=== PATIENT | female | born 1950 | race Caucasian/White ===

== ENCOUNTER → 2024-05-20 11:06 | Outpatient (REF) | payer MEDICARE, OTHER, SELFPAY | LOC: HWRAD 11:06 | PROVIDERS: ATTENDING PHYSICIAN Urology; FAMILY PHYSICIAN Family Medicine | DX: N20.0 Calculus of kidney (principal) | CPT/HCPCS: 76775 ==

== ENCOUNTER 2024-06-10 07:24 | Outpatient (RCR) | payer SELFPAY | END 2024-06-11 07:39 | disposition home or self-care (01) | LOC: ROT 07:24 | PROVIDERS: ATTENDING PHYSICIAN Family Medicine | DX: Z02.4 Encounter for examination for driving license (principal) ==

== ENCOUNTER → 2024-06-17 13:26 | Day surgery (SDC) | payer MEDICARE, OTHER, SELFPAY | LOC: SDSPAT 13:26 | PROVIDERS: ATTENDING PHYSICIAN Urology; FAMILY PHYSICIAN Family Medicine; REFERRING PHYSICIAN Internal Medicine Cardiovascular Disease | DX: Z01.810 Encounter for preprocedural cardiovascular examination (principal); I48.91 Unspecified atrial fibrillation; I45.10 Unspecified right bundle-branch block | CPT/HCPCS: 93005; 36415 ==

== ENCOUNTER 2024-06-21 06:18 | Day surgery (SDC) | payer MEDICARE, OTHER, SELFPAY ==
[2024-06-17 14:03] VITALS: BMI 33.1
--- NOTE | 2024-06-18 16:25 | PTCARENOTE ---
Abn ECG, Dr. Valdez notified, no requests made.
[2024-06-21] VITALS (8 sets, daily range): BP systolic 112–128; BP diastolic 68–96; BMI 33.1
[2024-06-21] MEDS: Pyridium 200 MG PO (15:41)
--- NOTE | 2024-06-21 15:53 | SUR.PHASEI ---
patient if very forgetful, repetative questions, pyridium 200mg given PO. repeatly explain procedure and plan of care. vss, dependent on SO for support and reinforcement
== END 2024-06-21 17:06 | disposition home or self-care (01) ==
LOC: SDS 06:18
PROVIDERS: ATTENDING PHYSICIAN Urology; FAMILY PHYSICIAN Family Medicine
DX: N20.2 Calculus of kidney with calculus of ureter (principal)
CPT/HCPCS: 52356; 74420; 76000; 82365; A4300; C1758; C1769; C1894; C2617

== ENCOUNTER 2025-02-04 19:55 | Inpatient (IN) | payer MEDICARE, OTHER, SELFPAY ==
[2025-02-04] VITALS (9 sets, daily range): BP systolic 91–178; BP diastolic 53–105; BMI 32.2
[2025-02-04 14:51] LABS: Hematocrit 47.9 % (37.0-47.0); Hemoglobin 16.4 g/dL (12.0-16.0); Mean Corp Hgb Conc. 34.2 g/dL (33.0-37.0); Mean Corpuscular Volume 89.9 fL (81.0-99.0); Nucleated Red Blood Cells % 0 %; Platelet Count 189 10^3/uL (130-400); Red Cell Dist. Width 13.2 % (11.5-14.5)
[2025-02-04 14:58] LABS: ALT (SGPT) 20 U/L (0-35); AST (SGOT) 25 U/L (14-36); Albumin 4.7 g/dl (3.5-5.0); Alkaline Phosphatase 106 U/L (38-126); Blood Urea Nitrogen 26 mg/dl (7-17); Calcium 9.8 mg/dl (8.4-10.2); Carbon Dioxide 25 mmol/L (22-30); Chloride 105 mmol/L (98-107); Glucose 154 mg/dl (70-99); Potassium 3.9 mmol/L (3.5-5.1); Sodium 139 mmol/L (135-145); Total Protein 7.5 g/dl (6.3-8.2); eGFR > 60.00
[2025-02-04 15:15] LABS: Urine Character Cloudy (Clear)
[2025-02-04 15:22] LABS: Urine Red Blood Cell 26-30 /HPF (0-2); Urine Squamous Cell 0-2 /LPF (Few); Urine White Cell >100 /HPF (0-5)
--- NOTE | 2025-02-04 15:26 | ED.GENMED ---
History of Present Illness
<Mounika Curtis PA-C - Last Filed: 02/04/25 18:21>
General
Chief Complaint: Weakness
Source: patient
Exam Limitations: none
Time Seen by Provider: 02/04/25 14:38
Nursing documentation reviewed up to this point in time: agreed with
History of Present Illness
History of Present Illness:
Patient is a 74-year-old female with history dementia, atrial fibrillation on Eliquis, hypertension, hyperlipidemia who presents to the emergency department via EMS for evaluation of generalized weakness. Patient unable to contribute to history
given history of dementia. She denies any current complaints getting headache, neck pain, chest pain, shortness of breath, or abdominal pain.
Apparently she is incontinent at baseline.
Of note�patient's arrived later in ED course stating that symptoms seem to come on relatively acutely today. She states patient was at her baseline yesterday however today was so weak that she cannot get out of bed. She was having trouble
ambulating and patient's feels that she may have been more confused than her baseline. No history of trauma. She has had no known fever.
Past History
<Mounika Curtis PA-C - Last Filed: 02/04/25 18:21>
Past History
ED Past Medical History: Arrthythmia, HTN and Hypercholesterolemia
Social History
Tobacco: Non-smoker
Review of Systems
<Mounika Curtis PA-C - Last Filed: 02/04/25 18:21>
Review of Systems
Allergies reviewed?: Yes
All Other Systems: ROS reviewed and negative except as documented in HPI and ROS
Phy Exam
<Mounika Curtis PA-C - Last Filed: 02/04/25 18:21>
Physical Exam
Physical Exam:
Vitals: Hypertensive, tachycardic on arrival. Febrile to 100.5F
General: Patient is no apparent distress
Skin: Warm and dry, no rashes or lesions
Head: Normocephalic, atraumatic
Eyes: Sclera nonicteric.
Throat: Protecting airway
Neck: Normal ROM, no cervical spine tenderness, no meningismus
Cardiac: Tachycardic, irregularly irregular rhythm, no murmurs.
Pulm: Normal respiratory effort, no wheezes, rales, rhonchi heard on exam
.
Abdomen: Abdomen soft. Diffuse tenderness without rebound tenderness or guarding. No CVA tenderness.
Extremities: No evidence of cyanosis or edema. Moving all extremities.
Neuro: AAOx 1 to person, not place or time (which is baseline). No focal deficits noted
Psychiatric: Normal affect.
Sepsis
<Mounika Curtis PA-C - Last Filed: 02/04/25 18:21>
Sepsis Screening
Sepsis Assessment: Severe Sepsis
Sepsis Screening: Lactate >2mmol/L
Sepsis Screen
Sepsis Screen: Severe Sepsis
Date: 02/04/25
Time: 18:16
<Griffin Badillo MD - Last Filed: 02/04/25 21:58>
Sepsis Screen
Sepsis Screen: Severe Sepsis
Date: 02/04/25
Time: 21:57
Course
<Mounika Curtis PA-C - Last Filed: 02/04/25 18:21>
Orders/Labs/Results
Orders:
Orders
02/04/25 14:31
Cardiac Monitoring- Treatment ONCE
IV Insert/Care/Rem.- Treatment PRN
02/04/25 14:37
Complete Blood Count/With Diff Urgent
Comprehensive Metabolic Panel Urgent
02/04/25 14:45
Electrocardiogram (*1) Urgent
Reason for Study: Fatigue / Weakness
EKG- Treatment ONCE
Straight cath- Treatment ONCE
pacemaker [Interrogate Pacemaker- Treatment] ONCE
0.9% Sodium Chloride 500 ml [Nss] 500 ml IV BOLUS
02/04/25 14:46
CT Abd/pelvis W Iv Cont Urgent
Comment:
Reason For Exam: abdominal pain, weakness
02/04/25 15:07
Urinalysis Reflex To Culture Urgent
Date Specimen was Collected: 02/04/25
Time Specimen was Collected: 14:59
Urine Microscopic Reflex Cult Urgent
Urine Culture Urgent
KATHERINE Source: U
Specimen Description:
Obtained by: Random
Date Specimen was Collected: 02/04/25
Time Specimen was Collected: 14:59
02/04/25 15:09
0.9% Sodium Chloride 1000 ml [Nss] 1,000 ml IV BOLUS
02/04/25 15:10
Acetaminophen [Tylenol] 650 mg PO NOW STA
CR Chest - 2 Views Urgent
Comment:
Reason For Exam: weakness, febrile
02/04/25 15:18
COVID-19 Antigen Urgent
Source: Nasal Swab
Lactic Acid Q4H
Comment: CANCEL 2nd LACTIC ACID IF 1st LACTIC ACID IS LESS THAN 2
Blood Culture Q30M
KATHERINE Source: Blood/Venous
Specimen Description:
02/04/25 15:57
Cefepime HCl [Maxipime] 2,000 mg IV NOW STA
02/04/25 16:47
0.9% Sodium Chloride 1000 ml [Nss] 1,000 ml IV BOLUS
02/04/25 16:55
Blood Culture Q30M
KATHERINE Source: Blood/Venous
Specimen Description:
02/04/25 17:13
CT Head W/o Iv Contrast Urgent
Comment:
Reason For Exam: AMS on eliquis
02/04/25 19:26
Admit/Transfer Patient As Directed
Co-Sign Provider:
Level of Care: Inpatient admission
Assign to:: Telemetry
Physician / Group: Cortez Coulter
Diagnosis: sepsis, UTI
Reason for Telemetry: Arrhythmia
Date to Stop Telemetry: 02/07/25
Time to Stop Telemetry: 11:00
Reason for Hospitalization: Sepsis, UTI
Expected length of stay greater than two midnights?: Yes
ELOS- Estimated Length of Stay in days: 3
I certify the patient meets the requirements for IP care: Yes
PRN Pain Medication Management As Directed
May give lesser potent ordered pain med per pt: Yes
preference::
Protocol:: Medication orders for pain may be administered in a
manner that supports deferring to patient preference
when the pt is:
- Requesting an ordered lesser potent pain medication.
Least to most potent pain medications are defined
as: acetaminophen < NSAID < tramadol < opioids
(morphine, oxycodone, hydromorphone).
- Requesting a lesser dose of the same medication IF
ORDERED.
- Requesting a less intrusive route of administration
if both routes are prescribed by the provider (PO <
IV).
02/04/25 19:28
Code Status As Directed
Resuscitation Status: Do not resuscitate
Reached after discussion with pt or family/Healthcare POA: Yes
Decision communicated with: patients
DNR Bracelet Application ONCE
02/04/25 20:03
Lactic Acid Q4H
Comment: CANCEL 2nd LACTIC ACID IF 1st LACTIC ACID IS LESS THAN 2
02/07/25 11:00
DC Protocol for Telemetry ONCE
Abnormal Lab Results
02/04/25 02/04/25 02/04/25
14:37 15:07 15:18
WBC 15.0 H 10^3/uL
(4.8-10.8)
Hgb 16.4 H g/dL
(12.0-16.0)
Hct 47.9 H %
(37.0-47.0)
MPV 10.9 H fL
(7.4-10.4)
Abs Immat Gran (auto) 0.1 H 10^3/uL
(0-0.05)
Absolute Neuts (auto) 13.3 H 10^3/uL
(1.4-6.5)
Absolute Lymphs (auto) 0.7 L 10^3/uL
(1.2-3.4)
Absolute Monos (auto) 0.9 H 10^3/uL
(0.1-0.6)
Neutrophils % 88.6 H %
(42.2-75.2)
Lymphocytes % 4.9 L %
(20.5-51.1)
BUN 26 H mg/dl
(7-17)
Glucose 154 H mg/dl
(70-99)
Lactic Acid 2.2 H mmol/L
(0.7-2.0)
Total Bilirubin 1.6 H mg/dl
(0.2-1.3)
Ur Occult Blood Reflex 4+ A
(Negative)
Leukocyte Esterase Rfl 3+ A
(Negative)
Urine RBC 26-30 A /HPF
(0-2)
Urine WBC (Reflex) >100 A /HPF
(0-5)
Urine Bacteria (Reflex) Many A
(Negative)
Urine Albumin (Reflex) 2+ A
(Neg - Trace)
02/04/25 14:37
02/04/25 14:37
Vital Signs
Initial and Last Documented VS:
Initial Vital Signs
BP
178/105
02/04/25 14:21
Last Documented Vital Signs
Temp Pulse Resp BP Pulse Ox
100.5 F H 101 19 129/68 97
02/04/25 15:04 02/04/25 20:45 02/04/25 20:45 02/04/25 18:00 02/04/25 18:00
<Griffin Badillo MD - Last Filed: 02/04/25 21:58>
Orders/Labs/Results
Orders:
Orders
02/04/25 14:31
Cardiac Monitoring- Treatment ONCE
IV Insert/Care/Rem.- Treatment PRN
02/04/25 14:37
Complete Blood Count/With Diff Urgent
Comprehensive Metabolic Panel Urgent
02/04/25 14:45
Electrocardiogram (*1) Urgent
Reason for Study: Fatigue / Weakness
EKG- Treatment ONCE
Straight cath- Treatment ONCE
pacemaker [Interrogate Pacemaker- Treatment] ONCE
0.9% Sodium Chloride 500 ml [Nss] 500 ml IV BOLUS
02/04/25 14:46
CT Abd/pelvis W Iv Cont Urgent
Comment:
Reason For Exam: abdominal pain, weakness
02/04/25 15:07
Urinalysis Reflex To Culture Urgent
Date Specimen was Collected: 02/04/25
Time Specimen was Collected: 14:59
Urine Microscopic Reflex Cult Urgent
Urine Culture Urgent
KATHERINE Source: U
Specimen Description:
Obtained by: Random
Date Specimen was Collected: 02/04/25
Time Specimen was Collected: 14:59
02/04/25 15:09
0.9% Sodium Chloride 1000 ml [Nss] 1,000 ml IV BOLUS
02/04/25 15:10
Acetaminophen [Tylenol] 650 mg PO NOW STA
CR Chest - 2 Views Urgent
Comment:
Reason For Exam: weakness, febrile
02/04/25 15:18
COVID-19 Antigen Urgent
Source: Nasal Swab
Lactic Acid Q4H
Comment: CANCEL 2nd LACTIC ACID IF 1st LACTIC ACID IS LESS THAN 2
Blood Culture Q30M
KATHERINE Source: Blood/Venous
Specimen Description:
02/04/25 15:57
Cefepime HCl [Maxipime] 2,000 mg IV NOW STA
02/04/25 16:47
0.9% Sodium Chloride 1000 ml [Nss] 1,000 ml IV BOLUS
02/04/25 16:55
Blood Culture Q30M
KATHERINE Source: Blood/Venous
Specimen Description:
02/04/25 17:13
CT Head W/o Iv Contrast Urgent
Comment:
Reason For Exam: AMS on eliquis
02/04/25 19:26
Admit/Transfer Patient As Directed
Co-Sign Provider:
Level of Care: Inpatient admission
Assign to:: Telemetry
Physician / Group: Cortez Coulter
Diagnosis: sepsis, UTI
Reason for Telemetry: Arrhythmia
Date to Stop Telemetry: 02/07/25
Time to Stop Telemetry: 11:00
Reason for Hospitalization: Sepsis, UTI
Expected length of stay greater than two midnights?: Yes
ELOS- Estimated Length of Stay in days: 3
I certify the patient meets the requirements for IP care: Yes
PRN Pain Medication Management As Directed
May give lesser potent ordered pain med per pt: Yes
preference::
Protocol:: Medication orders for pain may be administered in a
manner that supports deferring to patient preference
when the pt is:
- Requesting an ordered lesser potent pain medication.
Least to most potent pain medications are defined
as: acetaminophen < NSAID < tramadol < opioids
(morphine, oxycodone, hydromorphone).
- Requesting a lesser dose of the same medication IF
ORDERED.
- Requesting a less intrusive route of administration
if both routes are prescribed by the provider (PO <
IV).
02/04/25 19:28
Code Status As Directed
Resuscitation Status: Do not resuscitate
Reached after discussion with pt or family/Healthcare POA: Yes
Decision communicated with: patients
DNR Bracelet Application ONCE
02/04/25 20:03
Lactic Acid Q4H
Comment: CANCEL 2nd LACTIC ACID IF 1st LACTIC ACID IS LESS THAN 2
02/07/25 11:00
DC Protocol for Telemetry ONCE
Abnormal Lab Results
02/04/25 02/04/25 02/04/25
14:37 15:07 15:18
WBC 15.0 H 10^3/uL
(4.8-10.8)
Hgb 16.4 H g/dL
(12.0-16.0)
Hct 47.9 H %
(37.0-47.0)
MPV 10.9 H fL
(7.4-10.4)
Abs Immat Gran (auto) 0.1 H 10^3/uL
(0-0.05)
Absolute Neuts (auto) 13.3 H 10^3/uL
(1.4-6.5)
Absolute Lymphs (auto) 0.7 L 10^3/uL
(1.2-3.4)
Absolute Monos (auto) 0.9 H 10^3/uL
(0.1-0.6)
Neutrophils % 88.6 H %
(42.2-75.2)
Lymphocytes % 4.9 L %
(20.5-51.1)
BUN 26 H mg/dl
(7-17)
Glucose 154 H mg/dl
(70-99)
Lactic Acid 2.2 H mmol/L
(0.7-2.0)
Total Bilirubin 1.6 H mg/dl
(0.2-1.3)
Ur Occult Blood Reflex 4+ A
(Negative)
Leukocyte Esterase Rfl 3+ A
(Negative)
Urine RBC 26-30 A /HPF
(0-2)
Urine WBC (Reflex) >100 A /HPF
(0-5)
Urine Bacteria (Reflex) Many A
(Negative)
Urine Albumin (Reflex) 2+ A
(Neg - Trace)
02/04/25 14:37
02/04/25 14:37
Vital Signs
Initial and Last Documented VS:
Initial Vital Signs
BP
178/105
02/04/25 14:21
Last Documented Vital Signs
Temp Pulse Resp BP Pulse Ox
100.5 F H 101 19 129/68 97
02/04/25 15:04 02/04/25 20:45 02/04/25 20:45 02/04/25 18:00 02/04/25 18:00
<Mounika Curtis PA-C - Last Filed: 02/04/25 18:21>
MDM/Problems Addressed
Differential Diagnosis Includes:
Not limited to: Sepsis, viral illness, UTI, pyelonephritis, nephrolithiasis, intra-abdominal infection, etc.
MDM/Problems Addressed:
74-year-old female with history as documented presenting with generalized weakness x 1 day, found to be febrile on arrival. History extremely limited secondary to dementia. No history of recent trauma. Patient hypertensive and tachycardic on
arrival. Physical exam as above. Given fever and weakness�concern for sepsis or infectious process. ED plan labs, lactic blood cultures, UA, CT abdomen/pelvis, chest x-ray. Will give IV fluids, Tylenol and closely monitor
Update: Labs reviewed significant for leukocytosis of 15. Chemistry reveals mild elevation in bilirubin as well as elevated lactic acid to 2.2. Urine appears infected. Patient meets sepsis criteria given tachycardia, fever, leukocytosis and
findings of UTI. Will start IV cefepime pending CT scan. At this point�lower suspicion for pulmonary etiology. Patient will require admission for IV antibiotics, fluid resuscitation and continued management.
Update 5:15 PM:: CT scan with findings consistent of cystitis. Into reassess patient at bedside whose is now present. does report that she feels there may have been a mild mental status change as well as generalized weakness. Given
patient is anticoagulated on Eliquis will check CT head. However�patient did receive IV contrast for abdominal CT�plan will be to hold CT for 6 hours. Overall low suspicion for acute intracranial process and suspect possible mental status change
secondary to UTI.
[facility]fluid [facility] given sepsis suspected secondary to UTI. IV cefepime and fluids given in ED. Patient excepted to hospitalist service in stable condition.
Chronic conditions affecting care:
Atrial fibrillation on Eliquis, hypertension, history of kidney stones
Acute Exacerbation and/or Progression of Chronic Illness:
N/A
<Mounika Curtis PA-C - Last Filed: 02/04/25 18:21>
*Radiology
Radiology exam reviewed: preliminary read by ED provider and radiology read reviewed
*Pulse Oximetry
SaO2: 97
Oxygen Mode of Delivery: Room air
Patient hypoxic: no
*EKG
Interpreted by ED Provider?: Yes
EKG Intrepretation Date: 02/04/25
Interpretation: abnormal
Comparison EKG: changes noted
Heart Rate: 87
Rate: normal
Rhythm: a-fib
Interval: normal QT interval
QRS Pattern: right bundle branch block
Ischemia: non-specific ST changes
*T[employer] Professional Interpretation
Rate: tachycardiac
Interpretation: abnormal
Heart Rate: 110
Rhythm: a-fib
*Critical Care Note
Total Time (30-74mins, 75-104mins- exclusive of procedures): Not Applicable
<Mounika Curtis PA-C - Last Filed: 02/04/25 18:21>
Patient Management
Discussion with other providers: Hospitalist
Escalation/DeEscalation of care consider admission/obs:
Admit for IV antibiotics, fluid management
ED Attending Note
<Mounika Curtis PA-C - Last Filed: 02/04/25 18:21>
-
Portions of this chart may have been created with voice recognition software.� Occasional wrong word or��sound alike� substitutions may have occurred due to the inherent limitations of voice recognition software.
<Griffin Badillo MD - Last Filed: 02/04/25 21:58>
ED Attending Note
Patient seen and examined by attending physician: Yes
I performed the substantive portion of visit, reviewed & personally made and approve the management plan that is documented in note by myself or NEAL.: Yes
ED Attending Note:
Patient with change in mental status weakness progressive over 24 hours. History of some dementia. Patient does not add history. History from .
On exam patient is nontoxic in no distress. Low-grade fever. Neck supple. No rash. No respiratory distress. Atrial fibrillation with borderline tachycardia. Patient alert to name and somewhat to birthdate.
Labs show leukocytosis positive urine. Metabolic encephalopathy secondary to UTI. Highly doubt intracranial bleed. For completeness we will do a delayed head CT.
Discharge Plan
Departure
Patient Disposition: Admit
Date of Disposition: 02/04/25
Time of Disposition: 18:09
Presentation/result/management discussed w/ accepting MD/DO: Hospitalist
Discharge Problem:
Sepsis, UTI (urinary tract infection)
Interventions
Interventions:
*Risk Screen - Suicide Last Done: 02/04/25 14:29
*Neglect/Abuse Screening Last Done: 02/04/25 14:24
ED- Cardiac Assessment Last Done: 02/04/25 15:41
ED- Neurological Assessment Last Done: 02/04/25 15:41
ED- Pulmonary Assessment Last Done: 02/04/25 15:41
[2025-02-04] MEDS: NSS 1000 IV ×2 (15:27→18:43)
[2025-02-04] MEDS: TYLENOL 650 MG PO (15:30)
[2025-02-04 16:00] LABS: COVID-19 Antigen Negative (Negative)
[2025-02-04] MEDS: MAXIPIME 2000 MG IV (17:18)
--- NOTE | 2025-02-04 18:14 | EDRN ---
Dr. Badillo in room w/ pt. Attempted to get another IV access to speed up boluses though unable to get a second IV access. Will TT VAT team
--- NOTE | 2025-02-04 18:35 | EDRN ---
VAT RN in room w/pt attempting a second IV access at this time.
--- NOTE | 2025-02-04 18:50 | HPS.HSE ---
Family Physician
-
Family Physician: INTERVIEWE UNKNOWN - PT NOT
Chief Complaint
-
generalized weakness and confusion
History of Present Illness
Patient is a 74-year-old female with past medical history significant for hypertension, hyperlipidemia, permanent atrial fibrillation, dementia and hypothyroid who presented to [facility] ED for evaluation of increased confusion and increased weakness.
Patient is poor historian, at bedside who assisted in HPI. She reports patient this morning had an acute abrupt change from her baseline with confusion and weakness. She does report that patient elected to sleep downstairs last night verse
going upstairs. This morning patient was unable to get up from chair and had increased confusion from baseline. Denies any known fever, chills, cough, shortness of breath, chest pain, nausea, vomiting, constipation, diarrhea or urinary symptoms.
Medical History
Past Medical History
Past Medical History: Reports Other
Additional Past Medical History:
hypertension
hyperlipidemia
permanent atrial fibrillation
hypothyroid
Past Surgical History: Reports Other
Additional Past Surgical History:
kidney stone surgery
L Knee Torn Meniscus
[place] in L Forearm
Laparoscopic hysterectomy and bso 2006
bladder biopsy 04/2022
cystoscopy, left uretoscopy, laser lithotropsy, stone extraction 06/21/2024
Social History
Tobacco: Non-smoker
Alcohol: None
Drug: None
Personal:
Living: With Family
Family History
Family History: Other (Father: CHF; Mother: Lung Cancer )
Allergies / Home Medications
Allergies reflects when Allergies were last updated in [facility].
Home Medications with original date entered in [facility]
Allergy/Medication List:
Allergies
Allergy/AdvReac Type Severity Reaction Status Date / Time
No Known Allergies Allergy Verified 02/04/25 14:22
Home Medications
apixaban 5 mg tablet (Eliquis) 5 mg PO BID 03/30/22
atorvastatin 80 mg tablet 80 mg PO HS 03/30/22
cholecalciferol (vitamin D3) 25 mcg (1,000 unit) tablet (Vitamin D3) 25 mcg PO DAILY 03/30/22
hydrochlorothiazide 12.5 mg tablet 12.5 mg PO DAILY 03/30/22
levothyroxine 137 mcg tablet 137 mcg PO DAILY 03/30/22
losartan 50 mg tablet 50 mg PO DAILY 03/30/22
metoprolol tartrate 25 mg tablet 25 mg PO BID 03/30/22
potassium citrate 15 mEq (1,620 mg) tablet,extended release 15 meq PO BID 06/18/24
diltiazem HCl 240 mg tablet,extended release 24 hr 240 mg PO DAILY 02/04/25
Review of Systems
-
History Source: Patient
Constitutional: Reports No Symptoms
EENT: Reports No Symptoms
Respiratory: Reports No Symptoms
Cardiac: Reports No Symptoms
Abdomen/GI: Reports No Symptoms
: Reports Incontinence
Musculoskeletal: Reports No Symptoms
Skin: Reports No Symptoms
Neurological: Reports Weakness
Endocrine: Reports No Symptoms
Hematologic/Lymphatic: Reports No Symptoms
Psych: Reports Dementia (increased confusion )
Physical Exam
Vital Signs
Vital Signs
Temp Pulse Resp BP Pulse Ox
100.5 F H 98 19 129/68 97
02/04/25 15:04 02/04/25 18:15 02/04/25 18:15 02/04/25 18:00 02/04/25 18:00
Physical Exam
General: Well Developed, Well Nourished, No Apparent Distress, Comfortable, Conversant and Obese
HEENT: NormoCephalic, Moist mucous membranes and Atraumatic
Respiratory: Clear and Non Labored Respirations
Cardiac: S1/S2 and Irregular Rhythm; No Murmur, Rub or Gallop
Breast: Deferred by me
GI: Soft, Non Tender, Non Distended and Normal Bowel Sounds; No Organomegaly
Rectal: Deferred by Provider
Genito-urinary: Deferred by me
Musculoskeletal: No Clubbing, No Cyanosis and No Edema
Skin: IV/Catheter Site
Neuro: Awake
Psych: Apparent Dementia
Laboratory Results
-
02/04/25 14:37
02/04/25 14:37
Laboratory Results
Lactic Acid 2.2 mmol/L (0.7-2.0) H 02/04/25 15:18
Total Bilirubin 1.6 mg/dl (0.2-1.3) H 02/04/25 14:37
AST 25 U/L (14-36) 02/04/25 14:37
ALT 20 U/L (0-35) 02/04/25 14:37
Alkaline Phosphatase 106 U/L (38-126) 02/04/25 14:37
Data Reviewed
-
CT Scan: Report Reviewed by me (Abd/Pel: Urinary bladder wall thickening and fat stranding suspicious for acute cystitis. Recommend correlation with a urinalysis. Wall thickening of the vagina and a small amount of fluid noted in the vaginal canal,
of uncertain etiology. Possibilities include inflammation, infection, or reactive )
Medical Tests (Nuc Med, Echo, EKG etc): Report Reviewed by me (EKG: ATRIAL FIBRILLATION RIGHT BUNDLE BRANCH BLOCK T WAVE ABNORMALITY, CONSIDER INFEROLATERAL ISCHEMIA)
Lab Data: Labs Reviewed by me (WBC 15.0, Neut 88.6, Lactic 2.2)
Impression/Plan
-
IMPRESSION/PLAN:
#sepsis likely 2/2 UTI
WBC 15.0, Neut 88.6, Lactic 2.2
UA: indicative of UTI
Urine Cx: pending
Blood Cx: pending
Abd/Pel CT: Urinary bladder wall thickening and fat stranding suspicious for acute cystitis. Recommend correlation with a urinalysis.
Wall thickening of the vagina and a small amount of fluid noted in the vaginal canal, of uncertain etiology. Possibilities include inflammation, infection, or reactive changes.
Cholelithiasis.
Right nephrolithiasis.
- Admit to med/surg
- IVF LR 100cc/hr
- IV cefepime
- supportive care
#hypertension
- continue losartan
- hold hydrochlorothiazide
#hyperlipidemia
- continue atorvastatin
#permanent atrial fibrillation
EKG: ATRIAL FIBRILLATION
RIGHT BUNDLE BRANCH BLOCK
T WAVE ABNORMALITY, CONSIDER INFEROLATERAL ISCHEMIA
- continue Eliquis, diltiazem and metoprolol
#hypothyroid
- continue levothyroxine
Code status: DNR
DVT prophylaxis: Eliquis
--- NOTE | 2025-02-04 19:28 | W.PN.UPDATE ---
Update Note
Progress Note Update
I could not get any information from the patient has denebtiua
Information gathered by chart review and speaking with the ER staff.
This note serves as an addendum to the H&P by upscale security officer NEAL Kaylyn Baer
HPI
74F HX dementia, A Fib, HTN, HLD, A Fib, seen at ER
- [facility] for evaluation of generalized weakness.
- unable to contribute due to dementia.
- she is incontinent at baseline.
- awake
Vital Signs
Temp Pulse Resp BP Pulse Ox
100.5 F H 98 19 129/68 97
02/04/25 15:04 02/04/25 18:15 02/04/25 18:15 02/04/25 18:00 02/04/25 18:00
02/04/25
15:04 02/04/25
16:00 02/04/25
16:00
Temp 100.5 F H
Pulse 96
Resp Rate 25
Blood pressure 97/77
SaO2 94
PE
Gen: no apparent distress
HEENT: anicteric
Neck: supple
Lungs: CTA
Cor: tachycardic, irregularly irregula
Abdomen: soft. Diffuse tenderness without rebound tenderness or guarding.
BINDERY LEADPERSON:
MS:
Psych:
02/04/25 02/04/25 02/04/25
14:37 15:07 15:18
WBC 15.0 H
Creatinine 0.9
eGFR > 60.00
Lactic Acid 2.2 H
Total Bilirubin 1.6 H
Urine Clarity Cloudy
Leukocyte Esterase Rfl 3+ A
Urine RBC 26-30 A
Urine WBC (Reflex) >100 A
Urine Bacteria (Reflex) Many A
SARS-CoV-2 Antigen Negative
Pending HCT
03/21/23 TTE
LVEF 50-55
Diastolic function indeterminate.
Aortic sclerosis without stenosis.
Mild-moderate tricuspid regurgitation
Estimated PASP 30-32 mmHg, assuming a right atrial pressure of 3-5 mmHg.
NO PRIOR hospitalist admission:
ASSESSMENT & PLAN
Pending Rx reconciliation
Severe Sepsis ( T 100.5, WCC 15, LA2.2) due to UTI
UTI
- UCX
- 2 BCx
- s/p NS 2 L
- switch to LR IVF @ 100 ?H
- cont. IV CFP
Prox AF
- on chr Eliquis
- diltiazem for rate control
Essential HTN
- Hold HCTZ
- cont. Losartan and hold for SBP
Hypothyroid
- on LT4
HX Dementia
DVT Px: chronic Eliquis
DNR
IP TLM
[2025-02-04] MEDS: NSS 500 IV (21:57)
--- NOTE | 2025-02-04 22:38 | PTCARENOTE ---
Pt transported from ED to 3W via stretcher. Pt pullover from stretcher to bed, AAO to self, very confused and jumpy. Pt vitals stable, pt oriented to room, placed on TELE and bed alarm for safety.
[2025-02-04] MEDS: LR 1000 IV (23:00)
[2025-02-04] MEDS: UROCIT-K 15 MEQ PO (23:00)
[2025-02-04] MEDS: ELIQUIS 5 MG PO (23:00)
[2025-02-04] MEDS: LOPRESSOR 25 MG PO (23:00)
[2025-02-04] MEDS: LIPITOR 80 MG PO (23:00)
[2025-02-04] MEDS: MAXIPIME 1000 MG IV (23:24)
[2025-02-04] MEDS: STERILE WATER FOR INJECTION 10 ML IV (23:25)
[2025-02-05 03:13] VITALS: BP 144/64
[2025-02-05] MEDS: MAXIPIME 1000 MG IV ×3 (05:03→17:49)
[2025-02-05] MEDS: STERILE WATER FOR INJECTION 10 ML IV ×3 (05:04→17:48)
[2025-02-05] MEDS: SYNTHROID 137 MCG PO (05:05)
[2025-02-05 07:15] LABS: Hematocrit 39.8 % (37.0-47.0); Hemoglobin 13.4 g/dL (12.0-16.0); Mean Corp Hgb Conc. 33.7 g/dL (33.0-37.0); Mean Corpuscular Volume 90.9 fL (81.0-99.0); Red Cell Dist. Width 13.4 % (11.5-14.5)
--- NOTE | 2025-02-05 07:19 | W.PN.HOSP.TC ---
Addendum entered and electronically signed by Celso Koo MD 02/05/25 22:21:
Attending Addendum-
I saw and evaluated the patient. I reviewed the resident�s note and agree with findings and plan as documented in the resident�s note. Sub: Patient is a poor historian due to dementia. Seen with present. 'This is not her baseline' Patient has
no complaints but has expressive aphasia. Denies urinary, respiratory or GI sxs. Full 12 point ROS attempted but unreliable due to MS. Exam: Vitals reviewed in chart GEN-NAD heart RRR no MRG lungs clear dec=reased at bases abd soft LE no edema
Neuro expressive aphasia AAO x 1 follows commands
Plan:
# Delirium superimposed on advanced dementia
-CT head 02/[address] evidence for acute intracranial hemorrhage or transcortical infarct.
2. Moderate periventricular white matter leukoaraiosis in the frontal lobes.
3. Mild to moderate diffuse cerebral and cerebellar volume loss.
- likely due to UTI
- CTM closely
- unclear baseline as patient seems to have progressive dementia
#Sepsis 2/2 UTI
Urine Cx: GNB sensi pend
Blood Cx: 1/2 pos for staph aureus possible CONS repeat blood cx
Abd/Pel CT: Urinary bladder wall thickening and fat stranding suspicious for acute cystitis
Wall thickening of the vagina and a small amount of fluid noted in the vaginal canal, of uncertain etiology. Possibilities include inflammation, infection, or reactive changes.
Cholelithiasis.
Right nephrolithiasis.
- leukocytosis resolved
- cont IVF LR
- cont cefepime day #2
- trend CBC and fever curve
#Hypertension
- continue losartan
- hold hydrochlorothiazide
#Hyperlipidemia
- continue atorvastatin
#Permanent atrial fibrillation
- has PPM
- monitor on tele
- continue Eliquis, diltiazem and metoprolol
#Hypothyroid
- continue levothyroxine
Code status: DNR
DVT prophylaxis: Eliquis
ACP
Patient consented to discuss, was with , time spent explanation of advance directives, changes in health status, patient�s health care wishes if the patient becomes unable to make health decisions, goals of care, code status, and prognosis- 16
minutes
Time spent coordinating care, review of plan of care with resident, personally reviewed previous records in EMR, med rec, labs, radiology, d/w nursing, family total time documented is exclusive of any additional time listed that was spent in advance
care planning discussion -�51 minutes
Original Note:
Today's Communication/Plan
-
C/w IVF
C/w IV abx
Await cultures
Assessment / Plan
Assessment / Plan
74 yo F PMHx hypertension, hyperlipidemia, permanent atrial fibrillation, dementia and hypothyroid who presented to [facility] ED for evaluation of increased confusion and increased weakness found to have leukocytosis, lactic acidosis and UA suggestive of
UTI, admitted for presumed Sepsis 2* UTI.
#Sepsis secondary to UTI
- On admission -- Leukocytosis >14, Lactic Acidosis, altered mental status, febrile 100.5F, normotensive
- not in shock or requiring pressors
- Urine Cx pending
- Blood Cx pending
- S/p 1L IVF, c/w 100cc/hr LR
- Leukocytosis resolved
- C/w IV Cefepime pending cx results w/ sens
#AMS vs baseline dementia
- baseline unclear, oriented only to person today
- no acute complaints
- will reach out to family to confirm baseline mentation
#Permanent Afib
- L sided cardiac pacemaker
- on Tele monitoring
- ECG showing Afib w/ normal ventricular rate 87 and RBBB (present on ECG from 2023)
- V-paced rate controlled Afib on monitor
- c/w Eliquis, diltiazem, metoprolol with holding parameters for Bradycardia
#Essential Hypertension
- pressures labile, intermittent hypotension
- c/t monitor vitals
- c/w home losartan with holding parameters for SBP <110
#Hyperlipidemia
- c/w statin
#Hypothyroidism
- c/w home dose levothyroxine
DVT PPx: on Eliquis as above
Code Status: DNR
Anticipated Discharge: 24 - 48 hours
Subjective/Interval History
-
Date of Service: February 05, 2025
No acute overnight events. Able to take her medications. No acute complaints at this time, however she is minimally oriented.
Objective Data
-
Labs:
Laboratory Results
02/05/25
06:23
WBC 10.7
Hgb 13.4
Hct 39.8
Plt Count Pending
Sodium Pending
Potassium Pending
Chloride Pending
Carbon Dioxide Pending
BUN Pending
Creatinine Pending
Glucose Pending
Calcium Pending
Vital Signs:
Vital Signs
Temp Pulse Resp BP Pulse Ox
99.6 F 91 17 144/64 96
02/05/25 03:13 02/05/25 03:13 02/05/25 03:13 02/05/25 03:13 02/05/25 03:13
Review of Systems
-
Unable to obtain full review of systems at this time due to: Other
History Source: Patient
Constitutional: Reports No Symptoms
EENT: Reports No Symptoms Reported
Respiratory: Reports No Symptoms
Cardiac: Reports No Symptoms
Abdomen/GI: Reports No Symptoms
Genitourinary: Reports No Symptoms
Musculoskeletal: Reports No Symptoms
Neuro: Reports No Symptoms
Physical Exam
-
General: Well Developed, Well Nourished, No Apparent Distress and Comfortable
HEENT: Normocephalic, Atraumatic, Moist Mucous Membranes, Anicteric, [place] Conjunctivae, No Ptosis, PERRLA, Nose Appears Normal and Ears Appear Normal
Respiratory: Clear to Auscultation; Negative Wheezes, Rales or Rhonchi
Cardiac: S1/S2 and Irregular Rhythm; Negative Murmur, Rub or Gallop
Breast: Deferred by me
GI: Soft, Nontender, Nondistended and Normal Bowel Sounds
Rectal: Deferred by Provider
Genito-urinary: No Costovertebral Tender
Musculoskeletal: No Clubbing, No Cyanosis and No Edema
Skin: Warm and Dry
Neuro: Awake, Alert and Oriented (Only to person)
Psych: Calm; Negative Intact Judgement/Insight
[2025-02-05 07:27] VITALS: BP 140/60
[2025-02-05 07:30] LABS: Blood Urea Nitrogen 19 mg/dl (7-17); Calcium 9.1 mg/dl (8.4-10.2); Carbon Dioxide 25 mmol/L (22-30); Chloride 112 mmol/L (98-107); Estimated Creatinine Clearance 85 ml/min; Glucose 91 mg/dl (70-99); Potassium 4.1 mmol/L (3.5-5.1); Sodium 139 mmol/L (135-145); eGFR > 60.00
[2025-02-05 07:54] LABS: ALT (SGPT) 13 U/L (0-35); AST (SGOT) 20 U/L (14-36); Albumin 3.3 g/dl (3.5-5.0); Alkaline Phosphatase 69 U/L (38-126); Total Protein 5.6 g/dl (6.3-8.2)
[2025-02-05] MEDS: LOPRESSOR 25 MG PO ×2 (08:38→20:09)
[2025-02-05] MEDS: COZAAR 50 MG PO (08:39)
[2025-02-05] MEDS: CARDIZEM CD 240 MG PO (08:39)
[2025-02-05] MEDS: UROCIT-K 10 MEQ PO ×2 (08:39→20:09)
[2025-02-05] MEDS: ELIQUIS 5 MG PO ×2 (08:39→20:09)
[2025-02-05] MEDS: UROCIT-K PO (08:43)
[2025-02-05 09:17] LABS: Platelet Count 149 10^3/uL (130-400)
[2025-02-05 11:07] VITALS: BP 125/70
--- NOTE | 2025-02-05 11:53 | CM ---
Patient seen at bedside
IA completed - obtained from
Dx: Sepsis, UTI
PMH: hypertension, hyperlipidemia, permanent atrial fibrillation, dementia and hypothyroid
Patient lives with in a 2 story home with 3 [address], flight of stairs to bedroom/bathroom, powder room on 1st floor
Patient states they had worked with [employer] a few months ago
PLOF: independent, no device used
states assists with medication administration, she states patient dresses self, cooks
Denies DME - states may have walker in the basement?
Denies VN/Rehab
Denies insecurities
PCP: Coleen Gary
Pharmacy: [facility]
PLAN: TBD, continue to follow hospital progress, CM to follow for needs
[2025-02-05 15:17] VITALS: BP 151/72
[2025-02-05 15:57] VITALS: BMI 32.2
[2025-02-05 19:40] VITALS: BP 166/79
[2025-02-05] MEDS: LR IV (20:08)
[2025-02-05] MEDS: LR 1000 IV (20:08)
[2025-02-05] MEDS: LIPITOR PO (21:47)
[2025-02-05 23:33] VITALS: BP 161/89
[2025-02-06] VITALS (8 sets, daily range): BP systolic 102–146; BP diastolic 57–96; PULSE 65; O2SAT 97
[2025-02-06] MEDS: MAXIPIME 1000 MG IV ×4 (00:16→17:31)
[2025-02-06] MEDS: STERILE WATER FOR INJECTION 10 ML IV ×4 (00:17→17:31)
[2025-02-06] MEDS: LR 1000 IV (04:46)
[2025-02-06] MEDS: SYNTHROID 137 MCG PO (05:42)
--- NOTE | 2025-02-06 06:00 | PTCARENOTE ---
Pt removed own IV 4 times during day shift. New IV placed and Mitts ordered at the start of shift. By 1999 Pt got out of mitts 6 times and continuously removed conveyor monitor and attempted to pull IV. FRAME RUNNER notified and Left and right wrist
restraints, 4 side rails, and mitts ordered. Pt tolerating well, Q2 checks performed.
--- NOTE | 2025-02-06 07:46 | W.PN.HOSP.TC ---
Addendum entered and electronically signed by Celso Koo MD 02/07/25 08:24:
02/06/25
Attending Addendum-
I saw and evaluated the patient. I reviewed the resident�s note and agree with findings and plan as documented in the resident�s note. Sub: Patient is a poor historian due to dementia/CIMS. Seen with present. Patient has no complaints but has
has intermittent expressive aphasia. Per nearing baseline but likely unable to care for her at home. Denies urinary, respiratory or GI sxs. Full 12 point ROS attempted but unreliable due to MS. Exam: Vitals reviewed in chart GEN-NAD heart RRR
no MRG lungs clear decreased at bases abd soft LE no edema Neuro expressive aphasia AAO x 1 follows commands
Plan:
# Delirium superimposed on advanced dementia
-resolving
-CT head 02/[address] evidence for acute intracranial hemorrhage or transcortical infarct.
2. Moderate periventricular white matter leukoaraiosis in the frontal lobes.
3. Mild to moderate diffuse cerebral and cerebellar volume loss.
- likely due to UTI
- CTM closely
- unclear baseline as patient seems to have progressive dementia but nearing baseline per
#Sepsis 2/2 UTI
Urine Cx: ecoli sensi P
Blood Cx: 1/2 pos for staph aureus possible CONS, repeat blood cx x 2 NGTD
Abd/Pel CT: Urinary bladder wall thickening and fat stranding suspicious for acute cystitis
Wall thickening of the vagina and a small amount of fluid noted in the vaginal canal, of uncertain etiology. Possibilities include inflammation, infection, or reactive changes.
Cholelithiasis.
Right nephrolithiasis.
- leukocytosis resolved
- cont cefepime day #3
- trend CBC and fever curve
#Hypertension
- continue losartan
- hold hydrochlorothiazide
#Hyperlipidemia
- continue atorvastatin
#Permanent atrial fibrillation
- has PPM
- monitor on tele
- continue Eliquis, diltiazem and metoprolol
#Hypothyroid
- continue levothyroxine
Code status: DNR
DVT prophylaxis: Eliquis
Dispo Likely SNF in AM d/w agreeable to SNF as unable to care for at home
Time spent coordinating care, review of plan of care with resident, personally reviewed records in EMR, med rec, consults, notes, labs, radiology, d/w nursing CM and � 51 mins
Original Note:
Today's Communication/Plan
-
c/w IV Abx
observe cultures
c/w IV fluids
c/w soft restraints
Assessment / Plan
Assessment / Plan
74 yo F PMHx hypertension, hyperlipidemia, permanent atrial fibrillation, dementia and hypothyroid who presented to [facility] ED for evaluation of increased confusion and increased weakness found to have leukocytosis, lactic acidosis and UA suggestive of
UTI, admitted for presumed Sepsis 2* UTI.
#Sepsis secondary to UTI
- On admission -- Leukocytosis >14, Lactic Acidosis, altered mental status, febrile 100.5F, normotensive
- not in shock or requiring pressors
- Urine Cx pending
- Blood Cx showing (02/04) 1/4 growing CoN Staph species, NOT staph a., presumptive contaminate, however patient still spiking fever on abx
- Repeat Blood Cx (02/05) pending
- S/p 1L bolus IVF, c/w 100cc/hr LR
- c/w IV cefepime
#Ambulatory dysfunction
- concern from of ambulatory dysfunction in the days leading up to admission
- PT/OT ordered, will follow for recs
#Acute delirium with Baseline dementia
- Clarified baseline mentation with Jess (patient's )
- she reports baseline dementia with cognitive dysfunction, word finding difficulties and disorientation, however reports it is worse at this time
- Episode of pulling out IV x3 -- placed on BL mittens
- pending PT/OT recommendations may proceed with SNF placement and future LTC or dementia unit
#Permanent Afib
- L sided cardiac pacemaker
- on Tele monitoring
- ECG showing Afib w/ normal ventricular rate 87 and RBBB (present on ECG from 2023)
- V-paced rate controlled Afib on monitor
- c/w Eliquis, diltiazem, metoprolol with holding parameters for Bradycardia
#Essential Hypertension
- pressures labile, intermittent hypotension
- c/t monitor vitals
- c/w home losartan with holding parameters for SBP <110
#Hyperlipidemia
- c/w statin
#Hypothyroidism
- c/w home dose levothyroxine
#Sacrum stage 2 pressure injury, POA
#Bilateral Buttock Stage 2 Pressure Injury, POA
- c/w wound care -- Barrier Ointment, Silicone border foam dressing
DVT PPx: on Eliquis as above
Code Status: DNR
Anticipated Discharge: 24 - 48 hours
Subjective/Interval History
-
Date of Service: February 06, 2025
Still not oriented this morning, but no acute complaints. Overnight had x3 episodes of agitation and pulling out of IVs.
Objective Data
-
Labs:
Laboratory Results
02/06/25
07:25
WBC Pending
Hgb Pending
Hct Pending
Plt Count Pending
Sodium Pending
Potassium Pending
Chloride Pending
Carbon Dioxide Pending
BUN Pending
Creatinine Pending
Glucose Pending
Calcium Pending
Total Bilirubin Pending
AST Pending
ALT Pending
Alkaline Phosphatase Pending
Vital Signs:
Vital Signs
Temp Pulse Resp BP Pulse Ox
99.1 F 83 16 133/96 95
02/06/25 03:25 02/06/25 03:25 02/06/25 03:25 02/06/25 03:25 07/10/25 03:25
I&O
02/05/25 02/06/25 02/07/25
06:59 06:59 06:59
Intake Total 160 / 160
Balance 160 / 160
Review of Systems
-
Unable to obtain full review of systems at this time due to: Dementia
History Source: Patient
All other systems: Reviewed and negative
Physical Exam
-
General: Well Developed, Well Nourished, No Apparent Distress and Comfortable
HEENT: Normocephalic, Atraumatic, Moist Mucous Membranes, Anicteric, [place] Conjunctivae, PERRLA, Nose Appears Normal and Ears Appear Normal
Respiratory: Clear to Auscultation; Negative Wheezes, Rales or Rhonchi
Cardiac: S1/S2 and Irregular Rhythm; Negative Murmur or Rub
Breast: Deferred by me
GI: Soft, Nondistended, Normal Bowel Sounds and Tender (Questionable inconsistent pain response to palpation of the abdomen, patient unable to clarify pain or not)
Rectal: Deferred by Provider
Musculoskeletal: No Clubbing, No Cyanosis and No Edema
Skin: Warm and Dry
Neuro: Awake, Alert and Oriented (oriented to self)
Psych: Calm
[2025-02-06] MEDS: NSS 1000 IV ×2 (08:11→17:31)
[2025-02-06] MEDS: LOPRESSOR 25 MG PO ×2 (08:13→20:53)
[2025-02-06] MEDS: ELIQUIS 5 MG PO ×2 (08:14→20:53)
[2025-02-06] MEDS: UROCIT-K 10 MEQ PO ×2 (08:14→20:53)
[2025-02-06] MEDS: CARDIZEM CD 240 MG PO (08:14)
[2025-02-06] MEDS: COZAAR 50 MG PO (08:14)
--- NOTE | 2025-02-06 08:34 | PN.CDI ---
CDI
- -
CDI:
Physician Documentation Request
Admit Date: 02/04/25 19:55
Dear Doctor Eliseo,
Clinical Indicators:
Patient admitted with sepsis due to UTI.
02/05 RN skin/wound assessment: Sacrum Stage 2 Pressure Injury, POA
Bilateral Buttock Stage 2 Pressure Injury, POA
Treatment: Barrier Ointment, Silicone border foam dressing
Physician documentation of the type and location of wounds is required for compliant documentation. Based on the above clinical findings and your assessment, please provide the following in your progress note:
1. Location of the ulcer/wound, including laterality.
2. Type (etiology) of ulcer/wound:
- Pressure (decubitus) ulcer
- Other, please specify
3. If a pressure ulcer, please also include the stage* of the ulcer:
- Stage 1 - Skin intact, non-blanchable redness
- Stage 2 - Partial thickness loss of dermis, includes intact or open blister
- Stage 3 - Full thickness tissue not including bone, tendon or muscle
- Stage 4 - Full thickness tissue loss, including exposed bone, tendon or muscle
- Unstageable - Full thickness loss in which the base of the ulcer is covered by slough (yellow, randolph, corral, green or brown) and/or eschar (randolph, brown or black) in the wound bed.
- Unable to determine
Use of terms such as suspected, likely, concern for, or probable (associated with a specific diagnosis that is being evaluated, monitored, or treated as if it exists) are acceptable and can be coded in the inpatient setting, when documented at the
time of discharge.
Thank you,
ROSALINA Trujillo RN
CDI Specialist
available via tiger text
Please use your independent medical judgment in providing your response.
*Source: National Pressure Ulcer Advisory Panel (NPUAP)
[2025-02-06 09:15] LABS: Hematocrit 42.4 % (37.0-47.0); Hemoglobin 14.1 g/dL (12.0-16.0); Mean Corp Hgb Conc. 34.0 g/dL (33.0-37.0); Mean Corpuscular Volume 89.4 fL (81.0-99.0); Nucleated Red Blood Cells % 0 %; Platelet Count 144 10^3/uL (130-400); Red Cell Dist. Width 13.2 % (11.5-14.5)
--- NOTE | 2025-02-06 10:21 | CM ---
Patient seen at bedside
patient with restraint-nurse stated was pulling at tubes
temp noted last night @1940 - contiinues on antibiotic
PT/OT to eval
PLAN: Await PT/OT evals, CM to continue to follow for needs
[2025-02-06 12:51] LABS: ALT (SGPT) 15 U/L (0-35); AST (SGOT) 23 U/L (14-36); Albumin 3.1 g/dl (3.5-5.0); Alkaline Phosphatase 66 U/L (38-126); Blood Urea Nitrogen 14 mg/dl (7-17); Calcium 9.0 mg/dl (8.4-10.2); Carbon Dioxide 28 mmol/L (22-30); Chloride 111 mmol/L (98-107); Estimated Creatinine Clearance 85 ml/min; Glucose 112 mg/dl (70-99); Potassium 3.9 mmol/L (3.5-5.1); Sodium 141 mmol/L (135-145); Total Protein 5.3 g/dl (6.3-8.2); eGFR > 60.00
--- NOTE | 2025-02-06 16:59 | PTCARENOTE ---
pt had b/l wrist restraints, mits, and four rails up as ordered due to removing multiple IV/s and tele pack. Pt tolerated well, q2 checks performed and documented. no current complaints, plan of care ongoing.
[2025-02-06] MEDS: LIPITOR 80 MG PO (22:42)
[2025-02-07] MEDS: STERILE WATER FOR INJECTION 10 ML IV ×3 (00:44→12:29)
[2025-02-07] MEDS: MAXIPIME 1000 MG IV ×3 (00:44→12:29)
[2025-02-07 03:19] VITALS: BP 127/71
[2025-02-07] MEDS: NSS 1000 IV (04:36)
[2025-02-07] MEDS: SYNTHROID 137 MCG PO (05:37)
--- NOTE | 2025-02-07 07:39 | W.PN.HOSP.TC ---
Addendum entered and electronically signed by Celso Koo MD 02/07/25 20:59:
Attending Addendum-
I saw and evaluated the patient. I reviewed the resident�s note and agree with findings and plan as documented in the resident�s note. Sub: Patient is a poor historian due to dementia. Seen with present. Patient has no complaints but has has
intermittent expressive aphasia. Per nearing baseline. Had episodes of agitation requiring restraints overnight. Full 12 point ROS attempted but unreliable due to MS. Exam: Vitals reviewed in chart GEN-NAD heart RRR no MRG lungs clear
decreased at bases abd soft LE no edema Neuro expressive aphasia AAO x 1 follows commands
Plan:
# TME/Delirium superimposed on advanced dementia
-resolving
-CT head 02/[address] evidence for acute intracranial hemorrhage or transcortical infarct.
2. Moderate periventricular white matter leukoaraiosis in the frontal lobes.
3. Mild to moderate diffuse cerebral and cerebellar volume loss.
- due to UTI
- CTM closely
- unclear baseline as patient seems to have progressive dementia but nearing baseline per
- avoid restraints if possible as barrier to DC to SNF
#Sepsis 2/2 UTI
Urine Cx: ecoli sensi resulted
Blood Cx: 1/2 pos CONS likely contaminant, repeat blood cx x 2 NGTD
Abd/Pel CT: Urinary bladder wall thickening and fat stranding suspicious for acute cystitis
Wall thickening of the vagina and a small amount of fluid noted in the vaginal canal, of uncertain etiology. Possibilities include inflammation, infection, or reactive changes.
Cholelithiasis.
Right nephrolithiasis.
- leukocytosis resolved
- transition cefepime-> Keflex day 4/7 abx total
- trend CBC and fever curve
#Hypertension
- continue losartan
- hold hydrochlorothiazide
#Hyperlipidemia
- continue atorvastatin
#Permanent atrial fibrillation
- has PPM
- monitor on tele
- continue Eliquis, diltiazem and metoprolol
#Hypothyroid
- continue levothyroxine
Code status: DNR
DVT prophylaxis: Eliquis
Dispo- Likely SNF over weekend if off restraints x 24 hours
Time spent coordinating care, review of plan of care with resident, personally reviewed records in EMR, med rec, consults, notes, labs, radiology, d/w nursing CM and � 51 mins
Original Note:
Today's Communication/Plan
-
transition to PO Keflex for total 7d course
d/c IVF, d/c restraints
Discuss with CM for SNF planning
Assessment / Plan
Assessment / Plan
74 yo F PMHx hypertension, hyperlipidemia, permanent atrial fibrillation, dementia and hypothyroid who presented to [facility] ED for evaluation of increased confusion and increased weakness found to have leukocytosis, lactic acidosis and UA suggestive of
UTI, admitted for presumed Sepsis 2* UTI.
#Sepsis secondary to UTI
#Complicated Cystitis
- On admission -- Leukocytosis >14, Lactic Acidosis, altered mental status, febrile 100.5F, normotensive
- not in shock or requiring pressors
- Urine Cx - E.coli sensitive to Cefazolin, augmentin
- Blood Cx showing (02/04) 1/4 growing CoN Staph species, NOT staph a., presumptive contaminate
- Repeat Blood Cx (02/05) NGTD
- S/p 1L bolus IVF, c/w 100cc/hr LR -- will d/c fluids as patient is eating and drinking
- afebrile x24hr, leukocytosis resolved
- c/w IV cefepime -- d/c on PO Keflex to complete a 7d course, will transition to Oral now, pending SNF approval
#Ambulatory dysfunction
- concern from of ambulatory dysfunction in the days leading up to admission
- PT/OT ordered -- recommending SNF -- referrals sent, following with CM
#Acute delirium with Baseline dementia
- Clarified baseline mentation with Jess (patient's )
- she reports baseline dementia with cognitive dysfunction, word finding difficulties and disorientation, however reports it is worse at this time
- Episode of pulling out IV x3 -- no further need for IV -- will d/c restraints as patient is not violent
#Permanent Afib
- L sided cardiac pacemaker
- on Tele monitoring
- ECG showing Afib w/ normal ventricular rate 87 and RBBB (present on ECG from 2023)
- V-paced rate controlled Afib on monitor
- c/w Eliquis, diltiazem, metoprolol with holding parameters for Bradycardia
#Essential Hypertension
- pressures labile, intermittent hypotension
- c/t monitor vitals
- c/w home losartan with holding parameters for SBP <110
#Hyperlipidemia
- c/w statin
#Hypothyroidism
- c/w home dose levothyroxine
#Sacrum stage 2 pressure injury, POA
#Bilateral Buttock Stage 2 Pressure Injury, POA
- c/w wound care -- Barrier Ointment, Silicone border foam dressing
DVT PPx: on Eliquis as above
Code Status: DNR
Anticipated Discharge: Within 24 hours
Subjective/Interval History
-
Date of Service: February 07, 2025
No acute complaints. No overnight events. Still on soft restraints.
Objective Data
-
Labs:
Laboratory Results
02/07/25 02/07/25
06:00 07:25
WBC Pending Cancelled
Hgb Pending Cancelled
Hct Pending Cancelled
Plt Count Pending Cancelled
Sodium Pending Cancelled
Potassium Pending Cancelled
Chloride Pending Cancelled
Carbon Dioxide Pending Cancelled
BUN Pending Cancelled
Creatinine Pending Cancelled
Glucose Pending Cancelled
Calcium Pending Cancelled
Total Bilirubin Pending Cancelled
AST Pending Cancelled
ALT Pending Cancelled
Alkaline Phosphatase Pending Cancelled
Vital Signs:
Vital Signs
Temp Pulse Resp BP Pulse Ox
97.9 F 71 16 127/71 95
02/07/25 03:19 02/07/25 03:19 02/07/25 03:19 02/07/25 03:19 02/07/25 03:19
I&O
02/06/25 02/07/25 02/08/25
06:59 06:59 06:59
Intake Total 160 / 160 100 / 100
Balance 160 / 160 100 / 100
Review of Systems
-
Unable to obtain full review of systems at this time due to: Dementia
History Source: Patient
All other systems: Reviewed and negative
Physical Exam
-
General: Well Developed, Well Nourished, No Apparent Distress and Comfortable
HEENT: Normocephalic, Atraumatic, Moist Mucous Membranes, [place] Conjunctivae, PERRLA, Nose Appears Normal and Ears Appear Normal
Respiratory: Clear to Auscultation and Non Labored Respirations; Negative Wheezes, Rales or Rhonchi
Cardiac: S1/S2 and Irregular Rhythm; Negative Murmur or Rub
Breast: N/A
GI: Soft, Nontender, Nondistended and Normal Bowel Sounds
Rectal: Deferred by Provider
Genito-urinary: Deferred by me
Musculoskeletal: No Clubbing, No Cyanosis and No Edema
Skin: Warm, Dry and IV Access / Catheter Site
Neuro: Awake, Alert and Oriented (oriented to person only)
[2025-02-07 07:47] VITALS: BP 152/88
[2025-02-07] MEDS: LOPRESSOR 25 MG PO ×2 (07:56→21:27)
[2025-02-07] MEDS: CARDIZEM CD 240 MG PO (07:57)
[2025-02-07] MEDS: UROCIT-K 10 MEQ PO ×2 (07:57→21:28)
[2025-02-07] MEDS: ELIQUIS 5 MG PO ×2 (07:58→21:28)
[2025-02-07] MEDS: COZAAR 50 MG PO (07:58)
[2025-02-07 08:28] VITALS: BMI 32.2
[2025-02-07 08:32] LABS: Hematocrit 40.8 % (37.0-47.0); Hemoglobin 14.0 g/dL (12.0-16.0); Mean Corp Hgb Conc. 34.3 g/dL (33.0-37.0); Mean Corpuscular Volume 89.7 fL (81.0-99.0); Nucleated Red Blood Cells % 0 %; Platelet Count 152 10^3/uL (130-400); Red Cell Dist. Width 13.2 % (11.5-14.5)
--- NOTE | 2025-02-07 10:27 | CM ---
Addendum entered by Megan Mc 02/07/25 11:58:
barrier to SNF - patient needs to be off restraints for 24hrs
Original Note:
PT/OT rec SNF
spoke with Gillian and options reviewed
Referrals to [facility], [facility] & [facility] entered in [facility]
PLAN: SNF, pending acceptance/bed availability when stable
[2025-02-07 11:32] VITALS: BP 133/72
[2025-02-07 13:13] LABS: ALT (SGPT) 17 U/L (0-35); AST (SGOT) 26 U/L (14-36); Albumin 3.4 g/dl (3.5-5.0); Alkaline Phosphatase 80 U/L (38-126); Blood Urea Nitrogen 13 mg/dl (7-17); Calcium 8.9 mg/dl (8.4-10.2); Carbon Dioxide 27 mmol/L (22-30); Chloride 111 mmol/L (98-107); Estimated Creatinine Clearance 85 ml/min; Glucose 116 mg/dl (70-99); Potassium 4.2 mmol/L (3.5-5.1); Sodium 141 mmol/L (135-145); Total Protein 6.0 g/dl (6.3-8.2); eGFR > 60.00
[2025-02-07] MEDS: KEFLEX 500 MG PO ×3 (13:33→21:27)
[2025-02-07] MEDS: LIPITOR 80 MG PO (21:27)
[2025-02-07 23:00] VITALS: BP 139/64
[2025-02-08 05:48] LABS: Hematocrit 39.5 % (37.0-47.0); Hemoglobin 13.4 g/dL (12.0-16.0); Mean Corp Hgb Conc. 33.9 g/dL (33.0-37.0); Mean Corpuscular Volume 90.2 fL (81.0-99.0); Nucleated Red Blood Cells % 0 %; Platelet Count 150 10^3/uL (130-400); Red Cell Dist. Width 12.9 % (11.5-14.5)
[2025-02-08] MEDS: SYNTHROID 137 MCG PO (06:08)
[2025-02-08 06:15] LABS: ALT (SGPT) 17 U/L (0-35); AST (SGOT) 22 U/L (14-36); Albumin 2.9 g/dl (3.5-5.0); Alkaline Phosphatase 68 U/L (38-126); Blood Urea Nitrogen 13 mg/dl (7-17); Calcium 8.8 mg/dl (8.4-10.2); Carbon Dioxide 27 mmol/L (22-30); Chloride 111 mmol/L (98-107); Estimated Creatinine Clearance 85 ml/min; Glucose 101 mg/dl (70-99); Potassium 3.6 mmol/L (3.5-5.1); Sodium 141 mmol/L (135-145); Total Protein 5.1 g/dl (6.3-8.2); eGFR > 60.00
[2025-02-08 07:30] VITALS: BP 143/74
--- NOTE | 2025-02-08 07:42 | W.PN.HOSP.TC ---
Today's Communication/Plan
-
c/w PO Abx
pending auth for SNF
Assessment / Plan
Assessment / Plan
74 yo F PMHx hypertension, hyperlipidemia, permanent atrial fibrillation, dementia and hypothyroid who presented to [facility] ED for evaluation of increased confusion and increased weakness found to have leukocytosis, lactic acidosis and UA suggestive of
UTI, admitted for presumed Sepsis 2* UTI.
#Sepsis secondary to UTI
#Complicated Cystitis
- On admission -- Leukocytosis >14, Lactic Acidosis, altered mental status, febrile 100.5F, normotensive
- not in shock or requiring pressors
- Urine Cx - E.coli sensitive to Cefazolin, augmentin
- Blood Cx showing (02/04) 1/4 growing CoN Staph species, NOT staph a., presumptive contaminate
- Repeat Blood Cx (02/05) NGTD
- S/p 1L bolus IVF, c/w 100cc/hr LR -- will d/c fluids as patient is eating and drinking
- afebrile x24hr, leukocytosis resolved
- d/c IV cefepime -- on PO Keflex to complete a 7d course D5/7
#Ambulatory dysfunction
- concern from of ambulatory dysfunction in the days leading up to admission
- PT/OT ordered -- recommending SNF -- referrals sent, following with CM
#Acute delirium with Baseline dementia
- Clarified baseline mentation with Jess (patient's )
- she reports baseline dementia with cognitive dysfunction, word finding difficulties and disorientation, however reports it is worse at this time
- Episode of pulling out IV x3 -- no further need for IV -- will d/c restraints as patient is not violent
#Permanent Afib
- L sided cardiac pacemaker
- off tele now -- patient tearing off leads, has been stable thus far on current medications, v-paced rate controlled
- ECG showing Afib w/ normal ventricular rate 87 and RBBB (present on ECG from 2023)
- c/w Eliquis, diltiazem, metoprolol with holding parameters for Bradycardia
#Essential Hypertension
- pressures labile, intermittent hypotension
- c/t monitor vitals
- c/w home losartan with holding parameters for SBP <110
#Hyperlipidemia
- c/w statin
#Hypothyroidism
- c/w home dose levothyroxine
#Sacrum stage 2 pressure injury, POA
#Bilateral Buttock Stage 2 Pressure Injury, POA
- c/w wound care -- Barrier Ointment, Silicone border foam dressing
DVT PPx: on Eliquis as above
Code Status: DNR
Anticipated Discharge: Within 24 hours
Subjective/Interval History
-
Date of Service: February 08, 2025
No acute events overnight. No acute complaints. pleasant with evident dementia.
Objective Data
-
Labs:
Laboratory Results
02/08/25
05:22
WBC 7.6
Hgb 13.4
Hct 39.5
Plt Count 150
Sodium 141
Potassium 3.6
Chloride 111 H
Carbon Dioxide 27
BUN 13
Creatinine 0.6
Glucose 101 H
Calcium 8.8
Total Bilirubin 0.9
AST 22
ALT 17
Alkaline Phosphatase 68
Vital Signs:
Vital Signs
Temp Pulse Resp BP Pulse Ox
98.6 F 78 14 143/74 95
02/08/25 07:30 02/08/25 07:30 02/08/25 07:30 02/08/25 07:30 02/08/25 07:30
I&O
02/07/25 02/08/25 02/09/25
06:59 06:59 06:59
Intake Total 100 / 100 1440 / 1440
Balance 100 / 100 1440 / 1440
Review of Systems
-
Unable to obtain full review of systems at this time due to: Dementia
History Source: Patient
All other systems: Reviewed and negative
Physical Exam
-
General: Well Developed, Well Nourished, No Apparent Distress and Comfortable
HEENT: Normocephalic, Atraumatic, Moist Mucous Membranes, [place] Conjunctivae, PERRLA, Nose Appears Normal and Ears Appear Normal
Respiratory: Clear to Auscultation; Negative Wheezes, Rales or Rhonchi
Cardiac: S1/S2 and Irregular Rhythm; Negative Murmur
Breast: Deferred by me
GI: Soft, Nontender, Nondistended and Normal Bowel Sounds
Rectal: Deferred by Provider
Genito-urinary: Deferred by me
Musculoskeletal: No Clubbing, No Cyanosis and No Edema
Skin: Warm, Dry and IV Access / Catheter Site
Neuro: Awake, Alert and Oriented (Oriented to person only)
Psych: Calm, Confused and Apparent Dementia
[2025-02-08] MEDS: KEFLEX 500 MG PO ×4 (08:00→23:25)
[2025-02-08] MEDS: CARDIZEM CD 240 MG PO (08:00)
[2025-02-08] MEDS: COZAAR 50 MG PO (08:01)
[2025-02-08] MEDS: ELIQUIS 5 MG PO ×2 (08:04→23:24)
[2025-02-08] MEDS: LOPRESSOR 25 MG PO (08:05)
[2025-02-08] MEDS: KCL ELIXIR 40 MEQ PO (08:14)
[2025-02-08] MEDS: UROCIT-K 10 MEQ PO ×2 (08:16→23:23)
[2025-02-08 08:28] VITALS: BMI 32.2
[2025-02-08 15:21] VITALS: BP 121/72
[2025-02-08] MEDS: LIPITOR 80 MG PO (23:22)
[2025-02-08] MEDS: TYLENOL 650 MG PO (23:25)
[2025-02-08] MEDS: LOPRESSOR PO (23:33)
[2025-02-09 05:52] LABS: Hematocrit 38.8 % (37.0-47.0); Hemoglobin 13.0 g/dL (12.0-16.0); Mean Corp Hgb Conc. 33.5 g/dL (33.0-37.0); Mean Corpuscular Volume 91.3 fL (81.0-99.0); Nucleated Red Blood Cells % 0 %; Platelet Count 151 10^3/uL (130-400); Red Cell Dist. Width 13.1 % (11.5-14.5)
[2025-02-09 06:00] VITALS: BMI 33.2
[2025-02-09] MEDS: SYNTHROID 137 MCG PO (06:12)
[2025-02-09 06:18] LABS: ALT (SGPT) 16 U/L (0-35); AST (SGOT) 22 U/L (14-36); Albumin 3.0 g/dl (3.5-5.0); Alkaline Phosphatase 66 U/L (38-126); Blood Urea Nitrogen 12 mg/dl (7-17); Calcium 9.3 mg/dl (8.4-10.2); Carbon Dioxide 28 mmol/L (22-30); Chloride 110 mmol/L (98-107); Estimated Creatinine Clearance 73 ml/min; Glucose 97 mg/dl (70-99); Potassium 4.3 mmol/L (3.5-5.1); Sodium 140 mmol/L (135-145); Total Protein 5.4 g/dl (6.3-8.2); eGFR > 60.00
[2025-02-09 07:23] VITALS: BP 124/75
--- NOTE | 2025-02-09 07:35 | W.PN.HOSP.TC ---
Today's Communication/Plan
-
C/w abx
defer to CM for placement to SNF
patient otherwise remains medically stable for discharge
Assessment / Plan
Assessment / Plan
74 yo F PMHx hypertension, hyperlipidemia, permanent atrial fibrillation, dementia and hypothyroid who presented to [facility] ED for evaluation of increased confusion and increased weakness found to have leukocytosis, lactic acidosis and UA suggestive of
UTI, admitted for presumed Sepsis 2* UTI.
#Sepsis secondary to UTI
#Complicated Cystitis
- On admission -- Leukocytosis >14, Lactic Acidosis, altered mental status, febrile 100.5F, normotensive
- not in shock or requiring pressors
- Urine Cx - E.coli sensitive to Cefazolin, augmentin
- Blood Cx showing (02/04) 1/4 growing CoN Staph species, NOT staph a., presumptive contaminate
- Repeat Blood Cx (02/05) NG x72 hours
- S/p 1L bolus IVF, c/w 100cc/hr LR -- will d/c fluids as patient is eating and drinking
- afebrile x24hr, leukocytosis resolved
- d/c IV cefepime -- on PO Keflex to complete a 7d course D6
#Ambulatory dysfunction
- concern from of ambulatory dysfunction in the days leading up to admission
- PT/OT ordered -- recommending SNF -- off restraints >24hours -- defer to CM for authorization/placement. patient otherwise medically stable for discharge
#Acute delirium with Baseline dementia
- Clarified baseline mentation with Jess (patient's )
- she reports baseline dementia with cognitive dysfunction, word finding difficulties and disorientation, however reports it is worse at this time
- Episode of pulling out IV x3 -- required restraints x1d -- no further need for IV -- d/c'd restraints as patient is not violent
#Permanent Afib
- L sided cardiac pacemaker
- off tele now -- patient tearing off leads, has been stable thus far on current medications, v-paced rate controlled
- ECG showing Afib w/ normal ventricular rate 87 and RBBB (present on ECG from 2023)
- c/w Eliquis, diltiazem, metoprolol with holding parameters for Bradycardia
#Essential Hypertension
- pressures labile, intermittent hypotension
- c/t monitor vitals
- c/w home losartan with holding parameters for SBP <110
#Hyperlipidemia
- c/w statin
#Hypothyroidism
- c/w home dose levothyroxine
#Sacrum stage 2 pressure injury, POA
#Bilateral Buttock Stage 2 Pressure Injury, POA
- c/w wound care -- Barrier Ointment, Silicone border foam dressing
DVT PPx: on Eliquis as above
Code Status: DNR
Anticipated Discharge: 24 - 48 hours
Subjective/Interval History
-
Date of Service: February 09, 2025
Objective Data
-
Labs:
Laboratory Results
02/09/25
05:08
WBC 8.3
Hgb 13.0
Hct 38.8
Plt Count 151
Sodium 140
Potassium 4.3
Chloride 110 H
Carbon Dioxide 28
BUN 12
Creatinine 0.7
Glucose 97
Calcium 9.3
Total Bilirubin 1.1
AST 22
ALT 16
Alkaline Phosphatase 66
Vital Signs:
Vital Signs
Temp Pulse Resp BP Pulse Ox
97.9 F 79 12 124/75 94
02/09/25 07:23 02/09/25 07:23 02/09/25 07:23 02/09/25 07:23 02/09/25 07:23
I&O
02/08/25 02/09/25 02/10/25
06:59 06:59 06:59
Intake Total 1440 / 1440 480 / 480 120 / 120
Balance 1440 / 1440 480 / 480 120 / 120
[2025-02-09 08:00] VITALS: BMI 33.2
[2025-02-09] MEDS: CARDIZEM CD 240 MG PO (08:27)
[2025-02-09] MEDS: ELIQUIS 5 MG PO ×2 (08:28→21:05)
[2025-02-09] MEDS: COZAAR 50 MG PO (08:28)
[2025-02-09] MEDS: UROCIT-K 10 MEQ PO ×2 (08:28→21:05)
[2025-02-09] MEDS: KEFLEX 500 MG PO ×4 (08:28→21:05)
[2025-02-09] MEDS: LOPRESSOR 25 MG PO ×2 (08:28→21:05)
[2025-02-09 12:40] VITALS: BP 139/77; PULSE 71; O2SAT 96
[2025-02-09 12:42] VITALS: BP 139/77; PULSE 71; O2SAT 96
--- NOTE | 2025-02-09 13:46 | CM ---
Addendum entered by Ann Guillen 02/09/25 14:14:
Calls placed to [facility] and [facility] to check bed availability for transfer today. VM left for both facilities and awaiting response.
Original Note:
Pt has been off restraints since 02/07 at 07:21 am.
[2025-02-09 14:56] VITALS: BP 149/90
--- NOTE | 2025-02-09 15:16 | CM ---
CM continues to contact [facility] and [facility]. I spoke with Kaleigh at [facility] who advised that this patient is not on their list for admission this weekend. I left a voicemail for Jennifer at [facility] and have not received a response.
Attempted to contact Odalys in admissions, however was unable to leave a voicemail.
Patient and updated regarding continued attempts to coordinate transfer to [facility] or [facility]. MD also notified of plan.
Plan: CM to follow up tomorrow to coordinate transfer to SNF with [facility] or [facility] per pt and 's request.
[2025-02-09] MEDS: LIPITOR 80 MG PO (21:05)
[2025-02-09 23:43] VITALS: BP 140/79
[2025-02-10] MEDS: SYNTHROID PO (05:55)
[2025-02-10 06:00] VITALS: BMI 33.4
[2025-02-10 07:12] LABS: Hematocrit 41.7 % (37.0-47.0); Hemoglobin 13.7 g/dL (12.0-16.0); Mean Corp Hgb Conc. 32.9 g/dL (33.0-37.0); Mean Corpuscular Volume 91.2 fL (81.0-99.0); Nucleated Red Blood Cells % 0 %; Platelet Count 162 10^3/uL (130-400); Red Cell Dist. Width 13.2 % (11.5-14.5)
[2025-02-10 07:34] VITALS: BP 163/82
--- NOTE | 2025-02-10 07:35 | W.PN.HOSP.TC ---
Addendum entered and electronically signed by Herbert Carr MD 02/10/25 14:17:
Read, reviewed, and agree. See same day progress note for additional details. Time spent coordinating care, DC planning, review of DC plan of care with resident, transition of care, review of records in EMR, med rec, consults, notes, d/w
consultants, nursing, family, and CM mins
Sepsis secondary to UTI. Transition to p.o. Keflex complete 7-day course. Today is .
Discharge home
More than 30 minutes spent in discharge including
Final examination of the patient
Summarizing hospital stay
Instructions for continuing care to all relevant caregivers
Preparation of discharge records, prescriptions, and referral forms
Total time spent (in minutes): 33min
Original Note:
Today's Communication/Plan
-
c/w abx today,
pending approval from SNF, hopeful for today
Assessment / Plan
Assessment / Plan
74 yo F PMHx hypertension, hyperlipidemia, permanent atrial fibrillation, dementia and hypothyroid who presented to [facility] ED for evaluation of increased confusion and increased weakness found to have leukocytosis, lactic acidosis and UA suggestive of
UTI, admitted for presumed Sepsis 2* UTI.
#Sepsis secondary to UTI
#Complicated Cystitis
- On admission -- Leukocytosis >14, Lactic Acidosis, altered mental status, febrile 100.5F, normotensive
- not in shock or requiring pressors
- Urine Cx - E.coli sensitive to Cefazolin, augmentin
- Blood Cx showing (02/04) 1/4 growing CoN Staph species, NOT staph a., presumptive contaminate
- Repeat Blood Cx (02/05) NG x72 hours
- S/p 1L bolus IVF, c/w 100cc/hr LR -- will d/c fluids as patient is eating and drinking
- afebrile x24hr, leukocytosis resolved
- d/c IV cefepime -- on PO Keflex to complete a 7d course D7/7
#Ambulatory dysfunction
- concern from of ambulatory dysfunction in the days leading up to admission
- PT/OT ordered -- recommending SNF -- off restraints >24hours -- defer to CM for authorization/placement. patient otherwise medically stable for discharge
#Acute delirium with Baseline dementia
- Clarified baseline mentation with Jess (patient's )
- she reports baseline dementia with cognitive dysfunction, word finding difficulties and disorientation, however reports it is worse at this time
- Episode of pulling out IV x3 -- required restraints x1d -- no further need for IV -- d/c'd restraints as patient is not violent
#Permanent Afib
- L sided cardiac pacemaker
- off tele now -- patient tearing off leads, has been stable thus far on current medications, v-paced rate controlled
- ECG showing Afib w/ normal ventricular rate 87 and RBBB (present on ECG from 2023)
- c/w Eliquis, diltiazem, metoprolol with holding parameters for Bradycardia
#Essential Hypertension
- pressures labile, intermittent hypotension
- c/t monitor vitals
- c/w home losartan with holding parameters for SBP <110
#Hyperlipidemia
- c/w statin
#Hypothyroidism
- c/w home dose levothyroxine
#Sacrum stage 2 pressure injury, POA
#Bilateral Buttock Stage 2 Pressure Injury, POA
- c/w wound care -- Barrier Ointment, Silicone border foam dressing
DVT PPx: on Eliquis as above
Code Status: DNR
Anticipated Discharge: Within 24 hours
Subjective/Interval History
-
Date of Service: February 10, 2025
Patient has no acute complaints today, is feeling fine. No acute events overnight.
Objective Data
-
Labs:
Laboratory Results
02/10/25
06:33
WBC 9.2
Hgb 13.7
Hct 41.7
Plt Count 162
Sodium Pending
Potassium Pending
Chloride Pending
Carbon Dioxide Pending
BUN Pending
Creatinine Pending
Glucose Pending
Calcium Pending
Total Bilirubin Pending
AST Pending
ALT Pending
Alkaline Phosphatase Pending
Vital Signs:
Vital Signs
Temp Pulse Resp BP Pulse Ox
98 F 77 12 163/82 96
02/10/25 07:34 02/10/25 07:34 02/10/25 07:34 02/10/25 07:34 02/10/25 07:34
I&O
02/09/25 02/10/25 02/11/25
06:59 06:59 06:59
Intake Total 480 / 480 720 / 720
Balance 480 / 480 720 / 720
Review of Systems
-
Unable to obtain full review of systems at this time due to: Dementia
History Source: Patient
All other systems: Reviewed and negative
Constitutional: Reports No Symptoms
EENT: Reports No Symptoms Reported
Respiratory: Reports No Symptoms
Cardiac: Reports No Symptoms
Abdomen/GI: Reports No Symptoms
Genitourinary: Reports No Symptoms
Musculoskeletal: Reports No Symptoms
Skin: Reports No Symptoms
Neuro: Reports No Symptoms
Physical Exam
-
General: Well Developed, Well Nourished, No Apparent Distress and Comfortable
HEENT: Normocephalic, Atraumatic, Moist Mucous Membranes, Anicteric, [place] Conjunctivae, PERRLA, Nose Appears Normal and Ears Appear Normal
Respiratory: Clear to Auscultation; Negative Wheezes, Rales or Rhonchi
Cardiac: S1/S2 and Irregular Rhythm; Negative Murmur, Rub or Gallop
Breast: Deferred by me
GI: Soft, Nontender, Nondistended and Normal Bowel Sounds
Genito-urinary: No Costovertebral Tender
Musculoskeletal: No Clubbing, No Cyanosis and No Edema
Skin: Warm and Dry
Neuro: Awake, Alert and Oriented (oriented to person only)
Psych: Apparent Dementia
[2025-02-10 07:40] LABS: ALT (SGPT) 19 U/L (0-35); AST (SGOT) 23 U/L (14-36); Albumin 3.2 g/dl (3.5-5.0); Alkaline Phosphatase 72 U/L (38-126); Blood Urea Nitrogen 15 mg/dl (7-17); Calcium 9.1 mg/dl (8.4-10.2); Carbon Dioxide 28 mmol/L (22-30); Chloride 110 mmol/L (98-107); Estimated Creatinine Clearance 65 ml/min; Glucose 101 mg/dl (70-99); Potassium 4.2 mmol/L (3.5-5.1); Sodium 141 mmol/L (135-145); Total Protein 5.6 g/dl (6.3-8.2); eGFR > 60.00
[2025-02-10] MEDS: ELIQUIS 5 MG PO (07:42)
[2025-02-10] MEDS: LOPRESSOR 25 MG PO (07:42)
[2025-02-10] MEDS: KEFLEX 500 MG PO ×2 (07:42→13:17)
[2025-02-10] MEDS: COZAAR 50 MG PO (07:42)
[2025-02-10] MEDS: UROCIT-K 10 MEQ PO (07:42)
[2025-02-10] MEDS: CARDIZEM CD 240 MG PO (07:42)
--- NOTE | 2025-02-10 09:21 | CM ---
Patient chart reviewed
Spoke with Jennifer from [facility] admissions can accept today
updated Gillian - agreeable
IMM explained & in chart
TT hospitalist COVID test to be ordered
PLAN: [facility] SNF
Report #: [phone]
Fax #: [phone]
transportation forms on chart
[2025-02-10 10:25] LABS: COVID-19 Antigen Negative (Negative)
[2025-02-10 13:24] VITALS: BP 125/78
--- NOTE | 2025-02-10 18:04 | W.DCSUMMARY ---
Discharge Summary
Discharge Data
Date of Admission: 02/04/25
Date of Discharge: 02/10/25
Total time spent discharging patient (in min): >30m
-
Pending Results: No
Hospital Course
Discharging Physician : Dr. Herbert Carr
Disposition : SNF
Primary care physician : Unknown
Principal Discharge diagnosis : Sepsis, UTI, acute delirium, ambulatory dysfunction
Chronic Discharge diagnosis : Dementia, permanent A-fib, essential hypertension, hyperlipidemia, hypothyroidism
Hospital Course :
74 yo F PMHx hypertension, hyperlipidemia, permanent atrial fibrillation, dementia and hypothyroid who presented to [facility] ED for evaluation of increased confusion and increased weakness, found to have leukocytosis, lactic acidosis and UA suggestive
of UTI, admitted for presumed Sepsis 2* UTI.
#Sepsis secondary to UTI
#Complicated Cystitis
Patient met SIRS criteria on admission, was not in shock and did not require pressors. She was given a 1 L bolus of IV fluids and continued on 100 cc/h of LR until she was able to eat and drink adequately. She was started on IV cefepime. Urine
culture was done eventually growing E. coli sensitive to cephalosporins. blood cultures from 02/04 grew coagulase-negative staph species in 1 out of 4 tubes, presumptive contaminant. Repeat blood cultures from 02/05 showed no growth x 72 hours. While
on antibiotics her leukocytosis resolved and she remained afebrile. She was eventually transitioned to oral Keflex to complete a total 7-day course.
#Ambulatory dysfunction
Was concern from on admission about ambulatory dysfunction and significant worsening from patient's baseline. PT OT was ordered and evaluated the patient; recommending SNF placement. After working with case management patient was eventually
discharged to [facility] SNF.
#Acute delirium with Baseline dementia
Patient has baseline cognitive dysfunction secondary to dementia per patient's . Throughout the entire admission she was only ever oriented to person. During the night she had several episodes of pulling out her IVs and not cooperating with
nursing staff for which she was put on restraints. She was never violent. Eventually IVs were DC'd she was transitioned to oral oral medications and restraints were removed >24 hours prior to discharge to SNF.
#Permanent Afib
Patient with a history of permanent A-fib with left-sided cardiac pacemaker. She was monitored on telemetry initially where she was persistently in A-fib, rate controlled, asymptomatic. EKG done on admission showed A-fib with normal ventricular
rate 87 bpm and a right bundle branch block which was present on EKG from 2023. She was continued on all home rate control medications and oral anticoagulation. No medication changes were made.
#Essential Hypertension
Patient had intermittent bouts of hypotension that were asymptomatic. Vital signs were monitored throughout admission and she was continued on her home losartan. Pressures remained stable for >48 hours prior to discharge.
#Hyperlipidemia
She was continued on all home medications with no changes.
#Hypothyroidism
She was continued on all home medications with no changes.
#Sacrum stage 2 pressure injury, POA
#Bilateral Buttock Stage 2 Pressure Injury, POA
Pressure injuries present on admission were managed with barrier ointment, silicone bordered foam dressing.
Important imaging findings :
CT Abd/pelvis W Iv Cont (02/04/25):
IMPRESSION:
Urinary bladder wall thickening and fat stranding suspicious for acute cystitis. Recommend correlation with a urinalysis.
Wall thickening of the vagina and a small amount of fluid noted in the vaginal canal, of uncertain etiology. Possibilities include inflammation, infection, or reactive changes.
Cholelithiasis.
Right nephrolithiasis.
Other chronic findings, as detailed above.
CR Chest - 2 Views (02/04/2025):
IMPRESSION:
1. Mild to moderate cardiomegaly.
2. Mild subsegmental atelectasis and scarring in the lower lobes.
3. Mildly decreased bilateral lung volumes.
4. Left-sided cardiac pacemaker in place.
5. Cholelithiasis.
CT Head W/o Iv Contrast (02/04/2025):
IMPRESSION:
1. No CT evidence for acute intracranial hemorrhage or transcortical infarct.
2. Moderate periventricular white matter leukoaraiosis in the frontal lobes.
3. Mild to moderate diffuse cerebral and cerebellar volume loss.
4. Bilateral maxillary sinus mucous retention cysts.
Procedure findings :
None.
Discharge Plan
-
Patient Disposition: Retirement/SNF
Discharge Diagnosis/Procedures: Sepsis, UTI, AMS
Condition: Good
Diet: As tolerated
Activity: As tolerated
Driving Restrictions: No driving
Bathing Restrictions: None
Referrals:
UNKNOWN - PT NOT,INTERVIEWE [Family Provider]
Additional Discharge Medication Instructions: You are on the last day of your antibiotic course. Take Cephalexin every 6 hours for today, after that you may stop
Prescriptions:
New
cephalexin 500 mg Capsule
500 mg PO QID 1 Days Qty: 4 0RF
Continued
losartan 50 mg Tablet
50 mg PO DAILY
levothyroxine 137 mcg Tablet
137 mcg PO DAILY
atorvastatin 80 mg Tablet
80 mg PO HS
metoprolol tartrate 25 mg Tablet
25 mg PO BID
cholecalciferol (vitamin D3) [Vitamin D3] 25 mcg (1,000 unit) Tablet
25 mcg PO DAILY
hydrochlorothiazide 12.5 mg Tablet
12.5 mg PO DAILY
Eliquis 5 mg Tablet
5 mg PO BID
potassium citrate 15 mEq Tablet Extended Release
15 meq PO BID
diltiazem HCl 240 mg tablet extended release 24 hr
240 mg PO DAILY
Discharge Orders:
Discharge Patient (As Directed); Ordered 02/10/25
Ordered By: John Gomes
Discharge Date and Time
Discharge Date/Time: 02/10/25 13:43
Print Language: [id number]
== END 2025-02-10 13:43 | DRG 871 ==
LOC: 3 WEST ACU 19:55
PROVIDERS: Family Medicine; Nurse Practitioner Family; Physician Assistant; ADMITTING PHYSICIAN Internal Medicine; ATTENDING PHYSICIAN Hospitalist; EMERGENCY PHYSICIAN Student in an Organized Health Care Education/Training Program
DX: A41.9 Sepsis, unspecified organism (principal); G92.8 Other toxic encephalopathy; I48.21 Permanent atrial fibrillation; E87.20 Acidosis, unspecified; Z66 Do not resuscitate; N30.90 Cystitis, unspecified without hematuria; R65.20 Severe sepsis without septic shock; F03.90 Unspecified dementia, unspecified severity, without behavioral disturbance, psychotic disturbance, mood disturbance, and anxiety; E03.9 Hypothyroidism, unspecified; E78.00 Pure hypercholesterolemia, unspecified; I10 Essential (primary) hypertension; L89.152 Pressure ulcer of sacral region, stage 2; L89.312 Pressure ulcer of right buttock, stage 2; L89.322 Pressure ulcer of left buttock, stage 2; I45.10 Unspecified right bundle-branch block; Z11.52 Encounter for screening for COVID-19; Z75.1 Person awaiting admission to adequate facility elsewhere; Z79.01 Long term (current) use of anticoagulants; Z78.1 Physical restraint status; Z79.899 Other long term (current) drug therapy; Z95.0 Presence of cardiac pacemaker
CPT/HCPCS: 51701; 70450; 71046; 74177; 80053; 81003; 81015; 82248; 83605; 85025; 85027; 87040; 87077; 87086; 87154; 87186; 87205; 87811; 93005; 93288; 96361; 96374; 97163; 97167; 97530; 97535; 99285; Q9967